=== PATIENT | female | born 1940 | race Caucasian/White ===

== ENCOUNTER 2017-06-13 17:07 | Emergency (ER) | payer OTHER ==
--- NOTE | 2017-06-13 17:44 | EDPHY ---
H & P Time Seen by Provider: 06/13/17 17:42 HPI/ROS: Chief complaint. Diarrhea, constipation HPI. 9 and the female presents to emergency a intermittent diarrhea and constipation for 1 month. Also low abdominal pain. He has had similar symptoms previously with diverticulitis. Patient is being from [place] and has been here since April. No chest pain, shortness of breath. No fever. This stool has occasional bloody mucus. No vomiting. Pain is in both lower quadrants of her abdomen. No recent antibiotics ROS Constitutional. no fever/chills, no weakness Eyes. no problems with vision ENT. no sore throat, no nasal drainage Cardiovascular. no chest pain Respiratory. no shortness of breath, no cough Abdominal. Low abdominal pain with intermittent diarrhea and constipation . no problems urinating MS. no calf pain/swelling, no neck/back pain, no joint pain Skin. no rash Lymph. no swollen glands Neuro. no headache, no dizziness, no difficulty walking or with speech Past Medical/Surgical History: Hypothyroid, restless leg syndrome, asthma, diverticulitis Social History: Single, nonsmoker, no alcohol Smoking Status: Never smoked Physical Exam: General Appearance: Alert well-developed female mild distress vital signs are stable Eyes: Pupils equal and round no pallor or injection. ENT, Mouth: Mucous membranes are moist. Respiratory: There are no retractions, lungs are clear to auscultation. Cardiovascular: Regular rate and rhythm. Gastrointestinal: Abdomen is soft with tenderness in both lower quadrants in the periumbilical area. No masses. Normal bowel sounds. Rectal exam shows empty rectum Neurological: Awake and alert, sensory and motor exams grossly normal. Skin: Warm and dry, no rashes. Musculoskeletal: Neck is supple nontender. Extremities symmetrical, full range of motion. Psychiatric: Patient is oriented X 3, there is no agitation. Constitutional: Initial Vital Signs Temperature (C) 37.4 C 06/13/17 17:18 Heart Rate 88 06/13/17 17:18 Respiratory Rate 12 06/13/17 17:18 Blood Pressure 170/109 H 06/13/17 17:18 O2 Sat (%) 95 06/13/17 17:18 O2 Delivery Mode Room Air Allergies/Adverse Reactions: No Known Allergies Allergy (Verified 06/13/17 17:16) Home Medications: Medication Instructions Recorded Fluticasone/Salmeter 250/50Mcg 1 each IH 06/13/17 [Advair 250/50 (*)] Gabapentin [Neurontin 300 MG (*)] 300 mg PO HS 06/13/17 Levothyroxine [Synthroid 50 mcg 50 mcg PO DAILY06 06/13/17 (*)] Metronidazole 500 mg PO QID #40 tablet 06/13/17 levOFLOXACIN [levAQUIN (*)] 750 mg PO DAILY #10 tab 06/13/17 Medical Decision Making - Diagnostics Imaging Results: Imaging Impressions Abdomen CT 06/13/17 18:18 Impression: 1. Sigmoid diverticulitis, with chronic constipation. 2. Old compression deformity of vertebral body of L1. I telephoned results to Dr. Mauri Samano at [address] abdomen pelvis reviewed by me and discussed with Dr. Martinez shows chronic constipation and diverticulitis. No abscess or evidence for perforation Procedures: IV normal saline ED Course/Re-evaluation: Hemoccult was negative Re-evaluation 8:00 p.m.--patient is stable. The patient, her daughter, and I discussed imaging lab results. We discussed treatment plan including criteria for return importance of follow-up and further evaluation. She expresses understanding And agreement. Patient is offered admission however she would prefer outpatient management. She and I discussed risks and benefits of this. She expresses understanding Differential Diagnosis: Considered diverticulitis, stool fecal impaction C difficile. - Data Points Laboratory Results: Laboratory Results 06/13/17 17:40 06/13/17 17:40 06/13/17 06/13/17 06/13/17 18:15 17:40 17:40 WBC 10.92 10^3/uL H 10^3/uL (3.80-9.50) RBC 3.84 10^6/uL L 10^6/uL (4.18-5.33) Hgb 11.8 g/dL L g/dL (12.6-16.3) Hct 34.5 % L % (38.0-47.0) MCV 89.8 fL fL (81.5-99.8) MCH 30.7 pg pg (27.9-34.1) MCHC 34.2 g/dL g/dL (32.4-36.7) RDW 12.7 % % (11.5-15.2) Plt Count 510 10^3/uL H 10^3/uL (150-400) MPV 10.6 fL fL (8.7-11.7) Neut % (Auto) 68.1 % % (39.3-74.2) Lymph % (Auto) 17.6 % % (15.0-45.0) [place] % (Auto) 11.5 % % (4.5-13.0) Eos % (Auto) 1.9 % % (0.6-7.6) Baso % (Auto) 0.4 % % (0.3-1.7) Nucleat RBC Rel Count 0.0 % % (0.0-0.2) Absolute Neuts (auto) 7.44 10^3/uL H 10^3/uL (1.70-6.50) Absolute Lymphs (auto) 1.92 10^3/uL 10^3/uL (1.00-3.00) Absolute Monos (auto) 1.26 10^3/uL H 10^3/uL (0.30-0.80) Absolute Eos (auto) 0.21 10^3/uL 10^3/uL (0.03-0.40) Absolute Basos (auto) 0.04 10^3/uL 10^3/uL (0.02-0.10) Absolute Nucleated RBC 0.00 10^3/uL 10^3/uL (0-0.01) Immature Gran % 0.5 % % (0.0-1.1) Immature Gran # 0.05 10^3/uL 10^3/uL (0.00-0.10) Sodium 134 mEq/L mEq/L (134-144) Potassium 3.9 mEq/L mEq/L (3.5-5.2) Chloride 99 mEq/L mEq/L (97-110) Carbon Dioxide 23 mEq/l mEq/l (22-31) Anion Gap 12 mEq/L mEq/L (8-16) BUN 14 mg/dL mg/dL (7-23) Creatinine 1.0 mg/dL mg/dL (0.6-1.0) Estimated GFR 54 Glucose 101 mg/dL H mg/dL (70-100) Calcium 9.1 mg/dL mg/dL (8.5-10.4) Stool Occult Bld Scrn NEGATIVE (NEGATIVE) Medications Given: Discontinued Medications Sodium Chloride (Ns) 1,000 mls @ 0 mls/hr IV EDNOW ONE; Wide Open PRN Reason: Protocol Stop: 06/13/17 18:18 Last Admin: 06/13/17 18:42 Dose: 1,000 mls Departure - Departure Disposition: Home, Routine, Self-Care Clinical Impression: Diverticulitis Condition: Good Instructions: Diverticulitis (ED), Diverticulitis Diet (ED) Additional Instructions: The antibiotics he will be taking are metronidazole using 1 pill every 6 hr the for 10 days. Avoid alcohol while taking this antibiotic. Next antibiotic is Levaquin which is 1 pill daily. Drink plenty of fluids and stay hydrated. Return for worsening symptoms including worsening pain, fever, vomiting. Re-evaluation in 2-3 days especially if not improving. Referrals: DR LUIS [Other] - As per Instructions Keven Stout MD [[facility] Primary Care Provider] - As per Instructions Prashanth Geronimo MD [Medical Doctor] - 2-3 days without fail Prescriptions: levOFLOXACIN [levAQUIN (*)] 750 mg PO DAILY #10 tab Metronidazole 500 mg PO QID #40 tablet
[2017-06-13] MEDS ORDERED: NS 1,000 ML IV ONE (18:17)
[2017-06-13 18:47] LABS: PLATELET COUNT 510 10^3/uL (150-400)
[2017-06-13] MEDS ORDERED: IOPAMIDOL (ISOVUE-300) 100 ML BTL ONE (18:48)
[2017-06-13 19:51] VITALS: RESP 16; O2SAT 96
[2017-06-13] MEDS ORDERED: metroNIDAZOLE 500 MG TAB PO ONE (20:17)
[2017-06-13 20:29] VITALS: BP 133/76; PULSE 81; TEMP 98.6
== END 2017-06-13 20:43 | disposition home or self-care (01) ==
DX: K57.92 Diverticulitis of intestine, part unspecified, without perforation or abscess without bleeding (principal); J45.909 Unspecified asthma, uncomplicated; E86.9 Volume depletion, unspecified
CPT/HCPCS: 74177; 96360; 99285; Q9967

== ENCOUNTER 2017-06-17 09:31 | Inpatient (IN) | payer OTHER ==
[2017-06-17] MEDS ORDERED: NS 1,000 ML IV ONE (09:49)
[2017-06-17] MEDS ORDERED: ONDANSETRON 4 MG/2 ML VIAL IVP ONE (09:49)
--- NOTE | 2017-06-17 10:34 | EDPHY ---
H & P Stated Complaint: nausea/vomit since this am--here recenlty treated for divertic on meds - Personal History Current Tetanus/Diphtheria Vaccine: Unsure Current Tetanus Diphtheria and Acellular Pertussis (TDAP): Unsure - Medical/Surgical History Hx Asthma: Yes Hx Chronic Respiratory Disease: No Hx Diabetes: No Hx Cardiac Disease: No Hx Renal Disease: No Hx Cirrhosis: No Hx Alcoholism: No Hx HIV/AIDS: No Hx Splenectomy or Spleen Trauma: No Other PMH: hypothyroid. restless leg syndrome. asthma. diverticulitis - Social History Smoking Status: Never smoked Time Seen by Provider: 06/17/17 10:16 HPI/ROS: CHIEF COMPLAINT: Vomiting since yesterday HISTORY OF PRESENT ILLNESS: 77-year-old female seen in the emergency department diagnosed with diverticulitis 4 days ago, complaining of intractable vomiting since yesterday. Complaining of diffuse nonfocal abdominal pain and cramping. No back or flank pain. No fever or chills. No diarrhea, describes her bowel movements as loose but not watery. No abdominal PRIMARY CARE PROVIDER: REVIEW OF SYSTEMS: A ten point review of systems was performed and is negative with the exception of the items mentioned in the HPI PAST MEDICAL & SURGICAL HISTORY: No pertinent medical or surgical history SOCIAL HISTORY: Nonsmoker PHYSICAL EXAM (Prior to examination, patient consented to physical exam, hands were washed and my usual and customary physical exam procedures followed) 1) GENERAL: Well-developed, well-nourished, alert and oriented. Appears anxious , retching 2) HEAD: Normocephalic, atraumatic 3) HEENT: Pupils equal, round, reactive to light bilaterally. Sclera anicteric. Nasopharynx, oropharynx, clear, no lesions. Dry mucous membranes 4) NECK: Full range of motion, no meningeal signs. 5) LUNGS: Clear auscultation bilaterally, no wheezes, no rhonchi, no retractions. 6) HEART: Regular rate and rhythm, no murmur, no heave, no gallop. 7) ABDOMEN: No guarding, diffusely tender to palpation all quadrants, 8) MUSCULOSKELETAL: Moving all extremities, no focal areas of tenderness, no obvious trauma. No peripheral edema or discoloration. 9) BACK: No obvious trauma, no visual or palpable abnormality. 10) SKIN: No rash, no petechiae. 11) Psychiatric: Patient is oriented X 3, there is no agitation. DIFFERENTIAL DIAGNOSIS: In no particular include but limited to diverticulitis , diverticular abscess, diverticular perforation, medication adverse effect (Lilliam Landeros) Constitutional: Initial Vital Signs Temperature (C) 36.7 C 06/17/17 09:41 Heart Rate 77 06/17/17 09:41 Respiratory Rate 16 06/17/17 09:41 Blood Pressure 150/96 H 06/17/17 09:41 O2 Sat (%) 96 06/17/17 09:41 O2 Delivery Mode Room Air Allergies/Adverse Reactions: No Known Allergies Allergy (Verified 06/13/17 17:16) Home Medications: Medication Instructions Recorded Fluticasone/Salmeter 250/50Mcg 1 each IH 06/13/17 [Advair 250/50 (*)] Gabapentin [Neurontin 300 MG (*)] 300 mg PO HS 06/13/17 Levothyroxine [Synthroid 50 mcg 50 mcg PO DAILY06 06/13/17 (*)] Metronidazole 500 mg PO QID #40 tablet 06/13/17 levOFLOXACIN [levAQUIN (*)] 750 mg PO DAILY #10 tab 06/13/17 Medical Decision Making ED Course/Re-evaluation: I evaluated this patient with Adalid Landeros. This patient has known diverticulitis which was uncomplicated 1st. She was being treated as an outpatient. Unfortunately, she is intractable nausea and vomiting and dehydration. We will admit her for IV antibiotics hydration further workup if needed. (Davy Montano) Patient re-evaluated with serial examinations. Patient is visiting from [place], has no local primary care provider, as feel patient therapy diverticulitis. We discussed admission which he is agreeable with. She has not taken any of her medications in approximately 15-20 out secondary to vomiting. She will be given a dose of IV ertapenem, IV hydration and plan on admission. Will hold on imaging at this time. 11:07 a.m.: Consultation with hospitalist Shannon, admit to Dr. Cueva (Lilliam Landeros) - Data Points Laboratory Results: Laboratory Results 06/17/17 09:50 06/17/17 09:50 06/17/17 06/17/17 06/17/17 09:50 09:50 09:50 WBC 13.99 10^3/uL H 10^3/uL (3.80-9.50) RBC 3.84 10^6/uL L 10^6/uL (4.18-5.33) Hgb 11.8 g/dL L g/dL (12.6-16.3) Hct 34.7 % L % (38.0-47.0) MCV 90.4 fL fL (81.5-99.8) MCH 30.7 pg pg (27.9-34.1) MCHC 34.0 g/dL g/dL (32.4-36.7) RDW 12.8 % % (11.5-15.2) Plt Count 547 10^3/uL H 10^3/uL (150-400) MPV 10.2 fL fL (8.7-11.7) Neut % (Auto) 77.8 % H % (39.3-74.2) Lymph % (Auto) 11.8 % L % (15.0-45.0) [place] % (Auto) 8.4 % % (4.5-13.0) Eos % (Auto) 0.9 % % (0.6-7.6) Baso % (Auto) 0.4 % % (0.3-1.7) Nucleat RBC Rel Count 0.0 % % (0.0-0.2) Absolute Neuts (auto) 10.88 10^3/uL H 10^3/uL (1.70-6.50) Absolute Lymphs (auto) 1.65 10^3/uL 10^3/uL (1.00-3.00) Absolute Monos (auto) 1.18 10^3/uL H 10^3/uL (0.30-0.80) Absolute Eos (auto) 0.13 10^3/uL 10^3/uL (0.03-0.40) Absolute Basos (auto) 0.05 10^3/uL 10^3/uL (0.02-0.10) Absolute Nucleated RBC 0.00 10^3/uL 10^3/uL (0-0.01) Immature Gran % 0.7 % % (0.0-1.1) Immature Gran # 0.10 10^3/uL 10^3/uL (0.00-0.10) Sodium 140 mEq/L mEq/L (135-145) Potassium 3.6 mEq/L mEq/L (3.5-5.2) Chloride 102 mEq/L mEq/L (97-110) Carbon Dioxide 24 mEq/l mEq/l (22-31) Anion Gap 14 mEq/L mEq/L (8-16) BUN 11 mg/dL mg/dL (7-23) Creatinine 0.9 mg/dL mg/dL (0.6-1.0) Estimated GFR > 60 Glucose 99 mg/dL mg/dL (70-100) Calcium 9.0 mg/dL mg/dL (8.5-10.4) Total Bilirubin 0.3 mg/dL mg/dL (0.1-1.4) Conjugated Bilirubin 0.3 mg/dL mg/dL (0.0-0.5) Unconjugated Bilirubin 0.0 mg/dL mg/dL (0.0-1.1) AST 18 IU/L IU/L (14-46) ALT 24 IU/L IU/L (9-52) Alkaline Phosphatase 79 IU/L IU/L (38-126) Total Protein 6.1 g/dL L g/dL (6.3-8.2) Albumin 3.4 g/dL L g/dL (3.5-5.0) Lipase 49 IU/L IU/L (23-300) Urine Color YELLOW Urine Appearance CLEAR Urine pH 5.0 (5.0-7.5) Ur Specific [place] 1.011 (1.002-1.030) Urine Protein NEGATIVE (NEGATIVE) Urine Ketones TRACE H (NEGATIVE) Urine Blood NEGATIVE (NEGATIVE) Urine Nitrate NEGATIVE (NEGATIVE) Urine Bilirubin NEGATIVE (NEGATIVE) Urine Urobilinogen NEGATIVE EU EU (0.2-1.0) Ur Leukocyte Esterase 1+ H (NEGATIVE) Urine RBC 1-3 /hpf /hpf (0-3) Urine WBC 3-5 /hpf H /hpf (0-3) Ur Epithelial Cells TRACE /lpf /lpf (NONE-1+) Hyaline Casts 5-15 /lpf /lpf (0-1) Urine Mucus 1+ /lpf /lpf (NONE-1+) Urine Glucose NEGATIVE (NEGATIVE) Medications Given: Discontinued Medications Sodium Chloride (Ns) 1,000 mls @ 0 mls/hr IV EDNOW ONE; Wide Open PRN Reason: Protocol Stop: 06/17/17 09:50 Last Admin: 06/17/17 09:50 Dose: 1,000 mls Ondansetron HCl (Zofran) 4 mg IVP EDNOW ONE Stop: 06/17/17 09:50 Last Admin: 06/17/17 09:55 Dose: 4 mg Promethazine HCl (Phenergan) 12.5 mg IVP ONCE ONE Stop: 06/17/17 10:44 Last Admin: 06/17/17 10:48 Dose: 12.5 mg Departure - Departure Disposition: [facility] Inpatient Acute Clinical Impression: Diverticulitis Intractable vomiting Qualifiers: Vomiting type: unspecified Nausea presence: with nausea Qualified Code(s): R11.2 - Nausea with vomiting, unspecified Condition: Fair
[2017-06-17 10:37] LABS: PLATELET COUNT 547 10^3/uL (150-400)
[2017-06-17] MEDS ORDERED: PROMETHAZINE HCL 25 MG/ML INJ IVP ONE (10:43)
[2017-06-17] MEDS ORDERED: ERTAPENEM 1 GM VIAL IVP ONE (10:51)
[2017-06-17] MEDS ORDERED: NS 100 ML BAG IV ONE (11:20)
--- NOTE | 2017-06-17 11:38 | ASMTCMCOM ---
CM Note CM Note Notes: Patient presented to ED with intractable vomiting. She was seen here four days ago, diagnosed with diverticulitis and discharged with antibiotics. She will now be admitted for IV hydration and antibiotics. Patient is from [place] and here visiting family. Case Management will follow if she has any discharge needs. Date Signed: 06/17/2017 11:38 AM Electronically Signed By:Camila Betancur RN
[2017-06-17] MEDS ORDERED: GABAPENTIN 300 MG CAP PO ONE (12:15)
[2017-06-17] MEDS ORDERED: ONDANSETRON 4 MG/2 ML VIAL IVP PRN (13:05)
[2017-06-17] MEDS ORDERED: ALBUTEROL 3 ML DEYVIAL IH PRN (13:05)
[2017-06-17] MEDS ORDERED: ZOLPIDEM TARTRATE 5 MG TAB PO PRN (13:05)
[2017-06-17] MEDS ORDERED: HYDROmorphONE/DILAUDID 1 MG/ML INJ IVP PRN (13:05)
[2017-06-17] MEDS ORDERED: LORazepam 2 MG/ML INJ IVP PRN (13:05)
[2017-06-17] MEDS ORDERED: LORazepam 0.5 MG TAB PO PRN (13:05)
[2017-06-17] MEDS ORDERED: ONDANSETRON DISINTEGRATING 4 MG TAB PO PRN (13:05)
[2017-06-17] MEDS ORDERED: HYDROCODONE/APAP 5/325 TAB PO PRN (13:05)
[2017-06-17] MEDS ORDERED: oxyCODONE IR 5 MG TAB PO PRN (13:05)
[2017-06-17] MEDS ORDERED: FLUTICASONE/SALMETER 250/50MCG DISKUS IH SCH (13:15)
--- NOTE | 2017-06-17 14:18 | GHP ---
[f rep st] HISTORY AND PHYSICAL DATE OF ADMISSION: 06/17/2017 CHIEF COMPLAINT: Left lower quadrant abdominal pain. HISTORY OF PRESENT ILLNESS: A 77-year-old female, who is a resident of [place] and visiting her daughter since April here in the [place] area. 4 days ADMINISTRATIVE RECEPTIONIST, she presented to the emergency departm ent with left-sided abdominal pain, and was felt to have acute diverticulitis. CT scan at that time showed sigmoid diverticulitis with chronic constipation. She was placed on Levaquin, but her pain thornton s persisted, and this morning she presents with nausea, vomiting, and increasing left lower quadrant abdominal pain. She denies fever and has been afebrile here in the emergency department during this visit. She has had vomiting without hematemesis, and she is still passing some gas and a little bit of stool, but there is no blood. The passing of stool does not relieve her pain. Regarding her past history, she was seen here in 2013 for left-sided abdominal pain, and a CT scan at that time showed a left ureteral calculus, which they felt would pass. It apparently did. The CT scan at that time s howed a distal left ureteral calculus likely to pass into the bladder, with evidence suggesting proxi mal colitis of unknown activity. A hiatal hernia was also noted, but no diverticulitis was specified . PAST MEDICAL HISTORY: 1. The left ureteral calculus in 2013. 2. Recent diverticulitis noted on CT scan. 3. Asthma, for which she takes a steroid inhaler, and her PCP for this is in [place]. 4. Hypothyroidism currently treated with Synthroid. ALLERGIES: None. SOCIAL HISTORY: She drinks alcohol rarely, but will have a glass a wine with her daughter, but never in abuse. Tobacco: She has never smoked, and was only exposed to second-hand smoke from her father , who smoked a pipe. She does not use any drugs of abuse. REVIEW OF SYSTEMS: A 10-point Review of Systems except as noted above is negative. FAMILY HISTORY: The mother of advanced age. Father of a cerebral hemorrhage in his 50s. There is no definitive history of early coronary disease. No history of breast cancer personally, in her extended family, or daughters, and no history of any gastrointestinal cancers. She also denies a bleeding disorder or bleeding diathesis in the family. MEDICATIONS: These are noted in the EMR, and include Neurontin; Levaquin which she was prescribed 4 days ago; metronidazole, which was also prescribed 4 days ago; Synthroid 50 mcg; and an Advair inhale r 250/50 mcg inhaler to use once daily. PHYSICAL EXAMINATION: GENERAL: This is a pleasant alert female who appears mildly uncomfortable, as she is experiencing some lower abdominal pain. VITAL SIGNS: T-max has been 37.4, blood pressure is mildly elevated at 154/94, respirations 18, nonlabored, heart rate has been within normal limits wit h a max of 88. HEENT: Shows the throat is benign without exudate. Tongue and buccal mucosa are nor mal. CHEST WALL: Normal. Normal inspiratory excursion. LUNGS: Clear to P and A without wheezing or rales. She has good air movement and air exchange. HEART: Singular S1, S2. No murmur or gallop . ABDOMEN: Slightly perhaps distended. Hypoactive bowel sounds. There is definitive tenderness in the left lower quadrant, with local areas of rebound and very slight voluntary guarding. The right lower quadrant is also slightly tender, but she reports it is improved from previously. Upper abdome n is benign. Liver cannot be palpated. Spleen not felt. SKIN: Warm and dry. Free of rashes. MALICK ROLOGIC: Normal. EXTREMITIES: Show negative Homans sign. LABORATORY: WBC elevated at 13,900, which has risen from 10,000 on 06/13. Hemoglobin is the same at 11.8. She has a left shift of her white count at 77,000. Chemistry panel is entirely normal except for an albumin of 3.4. Her lipase is normal at 49. Urinalysis shows only 1-3 red cells and 3-5 whi te cells, and her stool is occult blood negative. Urine culture is pending. IMAGING STUDIES: Reviewing her CT scan from 06/13 shows that she has definitive diverticulitis and h as not improved. There is no evidence of a phlegmon or abscess at this time. She received 1 g of In vanz here in the emergency department, and was started on IV fluids. ASSESSMENT: 1. Acute diverticulitis. She will be admitted, placed on IV fluids. The Invanz will be continued, and pain medication given as needed. At this time, a gastrointestinal consult will not be obtained, nor surgical consult. CT scan, if she does not improve, will be repeated. 2. Acute asthma by history. This is well controlled on Advair inhaler. I will continue her Advair inhaler with p.r.n. albuterol. 3. Hypothyroidism. We will continue her usual home medications. 4. DVT prophylaxis will be with Lovenox. She is at some increased risk given her acute illness and the fact that she has not been mobile in the last several days. 5. Her [id number] is her daughter. 6. The patient will be placed in observation, as she may improve within 24 hours. We do need to sup ply adequate intravenous hydration to resolve her nausea and vomiting. Her code status is full. /[id number]/MODL
[2017-06-17] MEDS: NS W/ 20 KCl/L 1,000 ML IV SCH ×2 (14:48→22:37)
[2017-06-17] MEDS: ACETAMINOPHEN 325 MG TAB PO PRN ×2 (15:00→19:23)
[2017-06-17] MEDS: FLUTICASONE/SALMETER 250/50MCG DISKUS IH SCH (15:36)
[2017-06-17] MEDS ORDERED: PIPERACILLIN/TAZO 4.5 GM/DEX 100 ML IV SCH (18:00)
[2017-06-17] MEDS: GABAPENTIN 300 MG CAP PO SCH (20:30)
[2017-06-18] MEDS: ACETAMINOPHEN 325 MG TAB PO PRN ×5 (00:53→20:45)
[2017-06-18] MEDS: LEVOTHYROXINE 50 MCG TAB PO SCH (05:17)
[2017-06-18 05:33] LABS: PLATELET COUNT 462 10^3/uL (150-400)
[2017-06-18] MEDS: NS W/ 20 KCl/L 1,000 ML IV SCH (05:37)
[2017-06-18 05:56] LABS: INR 1.43 (0.83-1.16); PROTIME(PATIENT) 17.6 SEC (12.0-15.0)
[2017-06-18] MEDS: FLUTICASONE/SALMETER 250/50MCG DISKUS IH SCH (08:06)
[2017-06-18] MEDS: ERTAPENEM 1 GM VIAL IVP SCH (08:30)
[2017-06-18] MEDS: ENOXAPARIN 40 MG/0.4 ML SYR SC SCH (08:33)
[2017-06-18] MEDS ORDERED: FLU VACC QS 2017-18 (3YR+)/PF 0.5 ML SYR (FLUARIX QUAD) IM ONE (08:41)
--- NOTE | 2017-06-18 10:11 | HOSPPROG ---
Hospitalist Progress Note Assessment/Plan: 77-year-old female admitted with left lower quadrant pain and noted to have acute diverticulitis with an elevated white count. She is afebrile and today her pain is somewhat improved. Laboratory notes a developing anemia without signs of blood loss and severe protein caloric malnutrition with an albumin of 2.5. The patient desires to eat. -acute diverticulitis -weakness and nausea Subjective: reports persistent pain in LLQ of abdomen. some nausea Objective: Vital Signs Temp Pulse Resp BP Pulse Ox 36.8 C 91 12 131/109 H 95 06/18/17 08:03 06/18/17 08:08 06/18/17 08:08 06/18/17 08:03 06/18/17 08:08 Laboratory Results 06/18/17 05:23 06/18/17 05:23 06/17/17 06/18/17 06/19/17 05:59 05:59 05:59 Intake Total 3500 Balance 3500 PT 17.6 SEC (12.0-15.0) H 06/18/17 05:23 INR 1.43 (0.83-1.16) H 06/18/17 05:23 Laboratory Tests 06/17/17 06/17/17 06/18/17 09:50 09:50 05:23 WBC 13.99 H 13.24 H Hgb 11.8 L 10.4 L Albumin 3.4 L 06/18/17 05:23 WBC Hgb Albumin 2.5 L Severe protein caloric malnutrition with an albumin 2.5; white count persists and being elevated though the patient is afebrile anemia has developed without signs of blood loss. Laboratory Tests 06/13/17 06/18/17 06/18/17 17:40 05:23 05:23 WBC 13.24 H Hgb 11.8 L 10.4 L Plt Count 462 H D Absolute Neuts (auto) 8.97 H Albumin 2.5 L - Time Spent With Patient Time Spent with Patient: greater than 35 minutes Time Spent with Patient: Greater than 35 minutes spent on this patients care, greater than 50% of time spent counseling, educating, and coordinating care regarding the above mentioned plan. - Pending Discharge Pending Discharge Within 24 Hours: No Pending Discharge Within 48 Hours: Yes Pending Discharge Date: 06/20/17 Pending Discharge Time: 11:00 - Physical Exam Constitutional: no apparent distress Eyes: PERRL Ears, Nose, Mouth, Throat: moist mucous membranes, hearing normal Cardiovascular: regular rate and rhythym, no murmur, rub, or gallop Respiratory: no respiratory distress, no rales or rhonchi Gastrointestinal: normoactive bowel sounds, tenderness, guarding, rebound, distension Genitourinary: no bladder fullness Skin: warm Musculoskeletal: full muscle strength Neurologic: AAOx3, CN II-XII Intact Psychiatric: interacting appropriately ICD10 Worksheet Patient Problems: Problems Problem Status Onset Diverticulitis Acute Intractable vomiting Acute
--- NOTE | 2017-06-18 11:15 | PDMN ---
Medical Necessity Medical necessity: C/M review: Patient meets INPT criteria under [facility] M-150 Diverticulitis, acute: Acute and persistent diverticulitis, recent diverticulitis on 06/13/2017 CT, WBC 13.99, 13.24, eight stools -,loose to liquid with mucus in prior 24 hrs., anemia without signs of blood loss, Hgb 11.8, 10.4 , Hct 34.7, 30.6, severe protein calorie malnutrition, requiring IV fluids 06/17, ongoing IV Invanz QD, severe protein caloric malnutrition, total protein 6.1, 5.2, Albumin 3.4, 2.5, comorbid asthma, hypothyroidism, patient visiting [facility] from [place], [place]. anticipated > 2 MN LOS for ongoing med nec for eval and TX of above. Patient is Medicare advantage which follows CMS guidelines.
--- NOTE | 2017-06-18 11:59 | ASMTCMCOM ---
CM Note CM Note Notes: Spoke w/RN, anticipate pt will dc w/support of family when medically stable. CM available for any changes. DC Plan: Home independent Date Signed: 06/18/2017 11:58 AM Electronically Signed By:Libby Bazzi RN
[2017-06-18] MEDS: GABAPENTIN 300 MG CAP PO SCH (20:45)
[2017-06-19 05:21] LABS: PLATELET COUNT 449 10^3/uL (150-400)
[2017-06-19] MEDS: LEVOTHYROXINE 50 MCG TAB PO SCH (05:29)
[2017-06-19] MEDS: FLUTICASONE/SALMETER 250/50MCG DISKUS IH SCH (08:15)
[2017-06-19] MEDS: ACETAMINOPHEN 325 MG TAB PO PRN ×2 (08:36→18:23)
[2017-06-19] MEDS: ERTAPENEM 1 GM VIAL IVP SCH ×2 (08:36→08:37)
[2017-06-19] MEDS: ENOXAPARIN 40 MG/0.4 ML SYR SC SCH ×2 (08:38→08:46)
--- NOTE | 2017-06-19 14:01 | GCON ---
[f rep st] CONSULTATION DATE OF CONSULTATION: 06/19/2017 REQUESTING PHYSICIAN: Dr. Robert Cueva. REASON FOR CONSULTATION: Diverticulitis. HISTORY OF PRESENT ILLNESS: Patient is a 77-year-old female who presented in the emergency department with left lower quadrant pain and was diagnosed with acute diverticulitis. She has had a history in the past of diverticulitis and was sent home on antibiotics. She was unable to tolerate antibiotics, her pain getting worse, as well as significant nausea and vomiting, and was admitted into the ED 2 days ago with a diagnosis of acute diverticulitis. She was put on Levaquin IV antibiotics due to the persistent pain. The nausea and vomiting have since stopped. All that remains is left lower quadrant pain. She describes this as a dull ache with occasional sharp stabbing bouts of pain, 7/ 10. The dull ache is a 3/10. Most of her pain is in the left lower quadrant though she says it radiates occasionally into the central and right lower quadrant. The patient is continuing to have bloody mucousy stools with normal urine. She occasionally gets sharp pains while urinating in the left lower quadrant. She reports being sore and tender. She has been going very easy on her diet, has not been eating much and this morning is trying to eat some food. Her last colonoscopy was 4 years ago and she reports that there were no abnormal findings. Since being admitted and put on IV antibiotics, the patient reports feeling much better with a decrease in her nausea and vomiting to none today and significant decrease in her pain though she is still quite tender. On 06/14/2017, she had a CT scan that showed sigmoid diverticulitis with chronic constipation. PAST MEDICAL HISTORY: 1. Left ureteral calculus in 2013. 2. Recent diverticulitis note noted on CT scan 06/14/2017. 3. Asthma, for which she takes steroid inhaler. 4. Hypothyroidism, currently treated with Synthroid. ALLERGIES: No known drug allergies. SOCIAL HISTORY: The patient is a resident of [place] and is visiting her daughter and has been in [place] since April. She rarely drinks alcohol but occasionally has a glass of wine. She has never smoked but has a history of secondhand smoke from her father who smoked as she grew up. Denies any drug use or abuse. FAMILY HISTORY: Mother of advanced age. Father of a cerebral hemorrhage in his 50s. No known history of heart disease. No history of breast cancer or any GI cancers. Denies any family history of bleeding disorders. MEDICATIONS: Acetaminophen 650 mg p.o. q.4 hours as needed, Nikolai 5/325, 1 to 2 tablets p.o. every 4 hours as needed, albuterol inhaler, Lovenox 40 mg subcutaneous daily, Invanz 1 g IV p.o. daily, gabapentin 300 mg p.o., Dilaudid 0.2 to 0.4 mg IVP every 4 hours as needed for pain, Synthroid 50 mcg p.o. daily , Lorazepam 0.5 to 1 mg IVP every 8 hours as needed, Zofran 4 mg IVP every 4 hours as needed, oxycodone IR 5 to 10 mg p.o. every 3 hours as needed, Advair inhaler, Ambien 5 to 10 mg p.o. at bedtime as needed for sleep. REVIEW OF SYSTEMS: 10-point review of systems negative aside from HPI. PHYSICAL EXAMINATION: VITAL SIGNS: Heart rate 85, respiratory rate 16, oxygen saturation on room air 95%, afebrile. GENERAL: This is a pleasant female who is lying in bed, well-nourished, well-groomed in no acute distress. She is awake when we walk in the room. HEENT: Normocephalic. No gross hearing deficits. Mucous membranes moist. Pupils equal, round, and reactive to light. LUNGS: Clear to auscultation bilaterally. No increased work of breathing. No wheezing or rales. CARDIAC: Regular rate and rhythm. No peripheral edema. No murmurs or gallops. ABDOMEN: Normoactive bowel sounds. Tenderness to palpation especially in the left lower quadrant. Some mild discomfort with palpation in the right lower quadrant and central lower abdomen. No rebound tenderness. No guarding. Abdomen is slightly distended. Liver cannot be palpated. Spleen not felt. SKIN: Warm and dry. MUSCULOSKELETAL: Normal nails. PSYCHIATRIC: Mood and affect normal. NEUROLOGIC: Grossly intact. LABORATORY DATA: Results reviewed. White count is 10.67 which is trending down from 13.24 and 13.99 in the past 2 days. Hemoglobin is low at 10.4 with hematocrit also low at 30.2. All other labs appear grossly normal. CT of the abdomen and pelvis with IV contrast on 06/13/2017, showed sigmoid diverticulitis with chronic constipation and an old compression deformity of the vertebral body of L1. ASSESSMENT/PLAN: The patient has what appears to be uncomplicated diverticulitis. As of today, she is increasing her diet. She should be monitored to see how she tolerates her diet. I do not think she needs surgical intervention at this time. She should follow up with her primary care physician at home in [place] and discuss the possibility of a followup colonoscopy. We discussed if she has repeated episodes of diverticulitis then she could consider sigmoid colectomy. /[id number]/MODL MTDD
--- NOTE | 2017-06-19 16:01 | HOSPPROG ---
Hospitalist Progress Note Assessment/Plan: 77-year-old female admitted with left lower quadrant pain and noted to have acute diverticulitis with an elevated white count. She is afebrile and today her pain is somewhat improved. Today it is noted that her blood pressures been persistently elevated. Today patient also is eating slightly more her pain is slightly less. -acute diverticulitis: Her pain is declining and localizing to a smaller area in the left lower quadrant or white count continues to be elevated she is afebrile. In this regard she is improving. Surgery is consulted and findings are appreciated. She is not a surgical candidate. In summary on June 13 she began Levaquin for left lower quadrant pain was admitted on June 18 and has been on Invanz since and is improving on IV therapy. -weakness and nausea: Now improving on IV Invanz for her acute diverticulitis: Patient clearly had GI nausea with Flagyl as an outpatient. This is persisted without signs of GI bleeding. She has no history of reflux. Plan to place her on Protonix twice daily while in the hospital in planning for discharge on oral antibiotics. -elevated blood pressure: Patient has no history of this although it has been elevated throughout this hospitalization. This may be secondary to pain and an acute illness. Plan to start metoprolol 12.5 mg twice daily and assess. Plan: Continue IV Invanz as she is improving. -add metoprolol for blood pressure Disposition: Patient is from [place] and when definitively improving could be discharged on oral therapy to complete returned to [place]. Her daughter lives here in [place] and perhaps she could stay with her daughter until she has definitively improved. Her blood pressure should be rechecked. Possible discharge in 1-2 days Plan was discussed with the patient and her daughter in all questions were answered. Time: 45 min Subjective: Reports she continues to have pain but is eating a little more. She moves her bowels with mucousy and slightly bloody stools. No fever chills sweats chest pain or shortness of breath Objective: Vital Signs Temp Pulse Resp BP Pulse Ox 37.2 C 85 16 162/91 H 95 06/19/17 07:40 06/19/17 08:19 06/19/17 08:19 06/19/17 07:40 06/19/17 08:19 Laboratory Results 06/19/17 04:52 06/19/17 04:52 06/18/17 06/19/17 06/20/17 05:59 05:59 05:59 Intake Total 500 Balance 500 PT 17.6 SEC (12.0-15.0) H 06/18/17 05:23 INR 1.43 (0.83-1.16) H 06/18/17 05:23 - Time Spent With Patient Time Spent with Patient: greater than 35 minutes Time Spent with Patient: Greater than 35 minutes spent on this patients care, greater than 50% of time spent counseling, educating, and coordinating care regarding the above mentioned plan. - Pending Discharge Pending Discharge Within 24 Hours: Yes Pending Discharge Date: 06/20/17 Pending Discharge Time: 11:00 - Physical Exam Constitutional: no apparent distress Eyes: PERRL, anicteric sclera Ears, Nose, Mouth, Throat: moist mucous membranes, hearing normal Cardiovascular: regular rate and rhythym, no murmur, rub, or gallop Respiratory: no respiratory distress, no rales or rhonchi, clear to auscultation Gastrointestinal: normoactive bowel sounds, tenderness (Tenderness and left lower quadrant with slight guarding and very slight rebound in this area. The exam is improving day today) Genitourinary: no bladder fullness Skin: warm Musculoskeletal: full muscle strength Neurologic: AAOx3, CN II-XII Intact Psychiatric: interacting appropriately ICD10 Worksheet Patient Problems: Problems Problem Status Onset Diverticulitis Acute Intractable vomiting Acute
[2017-06-19] MEDS: PANTOPRAZOLE SODIUM 40 MG TAB PO SCH (20:50)
[2017-06-19] MEDS: METOPROLOL TARTRATE 25 MG TAB PO SCH (20:50)
[2017-06-19] MEDS: GABAPENTIN 300 MG CAP PO SCH (20:57)
[2017-06-20 05:19] LABS: PLATELET COUNT 439 10^3/uL (150-400)
[2017-06-20] MEDS: LEVOTHYROXINE 50 MCG TAB PO SCH (06:19)
[2017-06-20 08:54] VITALS: BP 137/91; PULSE 84; RESP 16; TEMP 98.1; O2SAT 96
[2017-06-20] MEDS: FLUTICASONE/SALMETER 250/50MCG DISKUS IH SCH (09:21)
[2017-06-20] MEDS: ERTAPENEM 1 GM VIAL IVP SCH (09:23)
[2017-06-20] MEDS: PANTOPRAZOLE SODIUM 40 MG TAB PO SCH (09:24)
[2017-06-20] MEDS: ENOXAPARIN 40 MG/0.4 ML SYR SC SCH (09:27)
[2017-06-20] MEDS: METOPROLOL TARTRATE 25 MG TAB PO SCH (09:37)
[2017-06-20] MEDS: ACETAMINOPHEN 325 MG TAB PO PRN (10:56)
--- NOTE | 2017-06-20 19:13 | GDS ---
[f rep st] DISCHARGE SUMMARY DIAGNOSIS: Acute sigmoid diverticulitis. HISTORY: Felicity is a 77-year-old female visiting from [place], who developed left lower quadrant p ain, had a CT scan showing acute diverticulitis. She initially attempted outpatient treatment with L evaquin and Flagyl. However, the antibiotic caused profuse nausea and vomiting, and she re-presented to the emergency room and was admitted. She was treated here with IV ertapenem and is improving. I suspect her antibiotic intolerance was just typical nausea and vomiting due to the Flagyl. We will change her antibiotic regimen to oral Augmentin to complete a 14-day course of therapy. As long as s he is improving over the next couple of days, she was cleared to fly home and follow up with primary care. DISCHARGE MEDICATIONS: Please see computerized record for full detailed list. New medication: Augm entin 875 mg p.o. twice daily for 8 more days. ADDITIONAL DISCHARGE INSTRUCTIONS: Okay to fly back to [place] in a few days provided she has on going improvement of her condition. Greater than 30 minutes' time was spent arranging this discharge. Patient seen and examined by me on the day of discharge. /[id number]/MODL
--- NOTE | 2017-06-23 09:45 | PQFORM ---
PHYSICIAN QUERY FORM Needs Your Response This query form is being sent to you to assure this patient record is coded properly. Please respond to the question below: MARKETING RESEARCHER QUESTION: Dr Calvin Severe Protein Calorie Malnutrition is mentioned in the Progress Notes with Total Proteins of 6.1 and 5.2 as well as Albumins of 2.5 and 3.4. There is no mention of Severe Protein Calorie Malnutrition mentioned in the Discharge Summary. Do you this patient has Severe Protein Calorie Malnutrition ? _x__ Yes ___ No ___ Other (Please Specify ) ___ Unable to Determine Thank You Liss RIVERS Audiovisual Technician INSTRUCTIONS FOR RESPONSE: Answer question by clicking on the "Edit Document" button. Move cursor to area below the stars. When complete, hit "Save." Click on the "Sign" button, then click "Sign" again. Type in your PIN and hit "Enter." MTDD
== END 2017-06-20 13:26 | disposition home or self-care (01) | DRG 391 ==
LOC: F3E 14:04 → OBSVTOIN 06-18 10:48
PROVIDERS: ADMIT Internal Medicine Pulmonary Disease; ATTEND Internal Medicine Pulmonary Disease
DX: K57.32 Diverticulitis of large intestine without perforation or abscess without bleeding (principal); E03.9 Hypothyroidism, unspecified; E43 Unspecified severe protein-calorie malnutrition; J45.909 Unspecified asthma, uncomplicated; R03.0 Elevated blood-pressure reading, without diagnosis of hypertension; D64.9 Anemia, unspecified; Z87.442 Personal history of urinary calculi; Z23 Encounter for immunization
CPT/HCPCS: 96374; G0008; G0378; J1335; J1650; J2405; J2550

== ENCOUNTER 2017-06-25 12:52 | Emergency (ER) | payer OTHER ==
[2017-06-25] MEDS ORDERED: ONDANSETRON 4 MG/2 ML VIAL IVP ONE ×2 (13:26→16:06)
[2017-06-25] MEDS ORDERED: NS 1,000 ML IV ONE (13:26)
[2017-06-25] MEDS ORDERED: ERTAPENEM 1 GM VIAL IVP ONE (13:27)
--- NOTE | 2017-06-25 13:30 | EDPHY ---
H & P Stated Complaint: D/C Mon from [facility]; ? exacerbation of diverticulitis vs GI upset from antibx Time Seen by Provider: 06/25/17 13:10 HPI/ROS: CHIEF COMPLAINT: Left lower quadrant pain, nausea HISTORY OF PRESENT ILLNESS: Patient is a 77-year-old female visiting from [place] complaining of left lower quadrant pain as well as nausea. She was seen here on the and had a CT scan diagnosed with diverticulitis. She was started on Levaquin and Flagyl. She returned on the with intractable nausea and vomiting continued pain and was admitted for 3 days. During the hospital stay she was on ertapenem and felt much better. She was discharged on the this time on Augmentin for 8 more days to complete a 14 day course. She states that whenever she takes the Augmentin she feels immediately nauseous but has not yet vomited. She feels better when she takes it with food especially in the evenings. She he was confused however because the prescription she has says to take for 16 days twice a day daily. Also she is having persistent left lower quadrant pain although she states that is much better than it was a week ago. She is concerned that she is not improving and will not be able to fly back to [place]. No fevers. She continues to have mucousy diarrhea, nonbloody. REVIEW OF SYSTEMS: Constitutional: denies: chills, fever, recent illness, recent injury EENTM: denies: blurred vision, double vision, nose congestion Respiratory: denies: cough, shortness of breath Cardiac: denies: chest pain, irregular heart rate, lightheadedness, palpitations Gastrointestinal/Abdominal: See HPI Genitourinary: denies: dysuria, frequency, hematuria, pain Musculoskeletal: denies: joint pain, muscle pain Skin: denies: lesions, rash, jaundice, bruising Neurological: denies: headache, numbness, paresthesia, tingling, dizziness, weakness Hematologic/Lymphatic: denies: blood clots, easy bleeding, easy bruising Immunologic/allergic: denies: HIV/AIDS, transplant EXAM: GENERAL: Well-appearing, well-nourished and in no acute distress. HEAD: Atraumatic, normocephalic. EYES: Pupils equal round and reactive to light, extraocular movements intact, sclera anicteric, conjunctiva are normal. ENT: TMs normal, nares patent, oropharynx clear without exudates. Moist mucous membranes. NECK: Normal range of motion, supple without lymphadenopathy or JVD. LUNGS: Breath sounds clear to auscultation bilaterally and equal. No wheezes rales or rhonchi. HEART: Regular rate and rhythm without murmurs, rubs or gallops. ABDOMEN: Mild left lower quadrant tenderness. No guarding or rebound. BACK: No CVA tenderness, no spinal tenderness, step-offs or deformities EXTREMITIES: Normal range of motion, no pitting or edema. No clubbing or cyanosis. NEUROLOGICAL: Cranial nerves II through XII grossly intact. Normal speech, normal gait. 5/5 strength, normal movement in all extremities, normal sensation PSYCH: Normal mood, normal affect. SKIN: Warm, dry, normal turgor, no visible rashes or lesions. Source: Patient Exam Limitations: No limitations - Personal History Current Tetanus Diphtheria and Acellular Pertussis (TDAP): Yes - Medical/Surgical History Hx Asthma: Yes Hx Chronic Respiratory Disease: No Hx Diabetes: No Hx Cardiac Disease: No Hx Renal Disease: No Hx Cirrhosis: No Hx Alcoholism: No Hx HIV/AIDS: No Hx Splenectomy or Spleen Trauma: No Other PMH: hypothyroid. restless leg syndrome. asthma. diverticulitis - Family History Significant Family History: No pertinent family hx - Social History Smoking Status: Never smoked Alcohol Use: Sober Drug Use: None Constitutional: Initial Vital Signs Temperature (C) 36.5 C 06/25/17 13:02 Heart Rate 89 06/25/17 13:02 Respiratory Rate 20 06/25/17 13:02 Blood Pressure 136/82 H 06/25/17 13:02 O2 Sat (%) 97 06/25/17 13:02 O2 Delivery Mode Room Air Allergies/Adverse Reactions: No Known Allergies Allergy (Verified 06/25/17 13:02) Home Medications: Medication Instructions Recorded Fluticasone/Salmeter 250/50Mcg 1 each IH DAILY 06/13/17 [Advair 250/50 (*)] Gabapentin [Neurontin 300 MG (*)] 300 mg PO HS 06/13/17 Levothyroxine [Synthroid 50 mcg 50 mcg PO DAILY06 06/13/17 (*)] Amoxicillin/Clavulanate Pot 875 mg PO BID 16 Days tab 06/20/17 [Augmentin 875 MG TAB (*)] Ondansetron Odt [Zofran Odt 4 mg 4 mg PO Q4 PRN #20 tab 06/25/17 (RX)] Medical Decision Making - Diagnostics Imaging Results: Imaging Impressions Abdomen CT 06/25/17 13:26 Impression: 1. Resolving sigmoid diverticulitis with no complication identified. 2. See above report for additional findings. Imaging: Discussed imaging studies w/ scallop raker Radiologist ED Course/Re-evaluation: The patient and her daughter are here both to receive better control of her nausea and vomiting. They have been taking an [id number] anti emetic they are not sure the name. Also they would like to be worked up again to ensure that her diverticulitis is improving whether that worsening. 4:00 p.m. I discussed the case with Dr. Martinez. She feels that the patient should finish 14 day course of Augmentin which would be another 9 days. I will prescribe Zofran for the patient to take along with her medication. Differential Diagnosis: Partial list of the Differential diagnosis considered include but were not limited to; diverticulitis, nausea, medication reaction and although unlikely based on the history and physical exam, I also considered perforation, obstruction, kidney stone. I discussed these differential diagnoses and the plan with the patient as well as the usual and expected course. The patient understands that the diagnosis is provisional and that in medicine we are not always correct and that further workup is often warranted. Usual and customary warnings were given. All of the patient's questions were answered. The patient was instructed to return to the emergency department should the symptoms at all worsen or return, otherwise to followup with the physician as we discussed. - Data Points Laboratory Results: Laboratory Results 06/25/17 13:30 06/25/17 13:30 06/25/17 06/25/17 06/25/17 15:05 13:30 13:30 WBC 15.23 10^3/uL H 10^3/uL (3.80-9.50) RBC 3.27 10^6/uL L 10^6/uL (4.18-5.33) Hgb 10.2 g/dL L g/dL (12.6-16.3) Hct 28.7 % L % (38.0-47.0) MCV 87.8 fL fL (81.5-99.8) MCH 31.2 pg pg (27.9-34.1) MCHC 35.5 g/dL g/dL (32.4-36.7) RDW 13.6 % % (11.5-15.2) Plt Count 516 10^3/uL H 10^3/uL (150-400) MPV 9.7 fL fL (8.7-11.7) Neut % (Auto) 72.3 % % (39.3-74.2) Lymph % (Auto) 15.2 % % (15.0-45.0) [place] % (Auto) 8.9 % % (4.5-13.0) Eos % (Auto) 2.6 % % (0.6-7.6) Baso % (Auto) 0.4 % % (0.3-1.7) Nucleat RBC Rel Count 0.0 % % (0.0-0.2) Absolute Neuts (auto) 11.02 10^3/uL H 10^3/uL (1.70-6.50) Absolute Lymphs (auto) 2.32 10^3/uL 10^3/uL (1.00-3.00) Absolute Monos (auto) 1.35 10^3/uL H 10^3/uL (0.30-0.80) Absolute Eos (auto) 0.39 10^3/uL 10^3/uL (0.03-0.40) Absolute Basos (auto) 0.06 10^3/uL 10^3/uL (0.02-0.10) Absolute Nucleated RBC 0.00 10^3/uL 10^3/uL (0-0.01) Immature Gran % 0.6 % % (0.0-1.1) Immature Gran # 0.09 10^3/uL 10^3/uL (0.00-0.10) Sodium 140 mEq/L mEq/L (135-145) Potassium 3.7 mEq/L mEq/L (3.5-5.2) Chloride 104 mEq/L mEq/L (97-110) Carbon Dioxide 24 mEq/l mEq/l (22-31) Anion Gap 12 mEq/L mEq/L (8-16) BUN 18 mg/dL mg/dL (7-23) Creatinine 0.8 mg/dL mg/dL (0.6-1.0) Estimated GFR > 60 Glucose 95 mg/dL mg/dL (70-100) Calcium 8.4 mg/dL L mg/dL (8.5-10.4) Total Bilirubin 0.5 mg/dL mg/dL (0.1-1.4) Conjugated Bilirubin 0.3 mg/dL mg/dL (0.0-0.5) Unconjugated Bilirubin 0.2 mg/dL mg/dL (0.0-1.1) AST 20 IU/L IU/L (14-46) ALT 35 IU/L IU/L (9-52) Alkaline Phosphatase 96 IU/L IU/L (38-126) Total Protein 5.9 g/dL L g/dL (6.3-8.2) Albumin 2.9 g/dL L g/dL (3.5-5.0) Lipase 56 IU/L IU/L (23-300) Urine Color YELLOW Urine Appearance HAZY Urine pH 7.0 (5.0-7.5) Ur Specific [place] 1.025 (1.002-1.030) Urine Protein NEGATIVE (NEGATIVE) Urine Ketones TRACE H (NEGATIVE) Urine Blood 2+ H (NEGATIVE) Urine Nitrate NEGATIVE (NEGATIVE) Urine Bilirubin NEGATIVE (NEGATIVE) Urine Urobilinogen NEGATIVE EU EU (0.2-1.0) Ur Leukocyte Esterase 3+ H (NEGATIVE) Urine RBC 1-3 /hpf /hpf (0-3) Urine WBC 1-3 /hpf /hpf (0-3) Ur Epithelial Cells 2+ /lpf H /lpf (NONE-1+) Urine Bacteria TRACE /hpf H /hpf (NONE SEEN) Urine Mucus TRACE /lpf /lpf (NONE-1+) Urine Glucose NEGATIVE (NEGATIVE) Medications Given: Discontinued Medications Ertapenem (Invanz) 1 gm IVP EDNOW ONE PRN Reason: Protocol Stop: 06/25/17 13:28 Last Admin: 06/25/17 14:17 Dose: 1 gm Sodium Chloride (Ns) 1,000 mls @ 0 mls/hr IV EDNOW ONE; Wide Open PRN Reason: Protocol Stop: 06/25/17 13:27 Last Admin: 06/25/17 13:43 Dose: 1,000 mls Ondansetron HCl (Zofran) 4 mg IVP EDNOW ONE Stop: 06/25/17 13:27 Last Admin: 06/25/17 13:43 Dose: 4 mg Ondansetron HCl (Zofran) 4 mg IVP EDNOW ONE Stop: 06/25/17 16:07 Last Admin: 06/25/17 16:18 Dose: 4 mg Departure - Departure Disposition: Home, Routine, Self-Care Clinical Impression: Diverticulitis Condition: Fair Instructions: Diverticulitis (ED) Additional Instructions: Continue taking the Augmentin until the . Referrals: JANUARY PAIZ [Other] - As per Instructions Prescriptions: Ondansetron Odt [Zofran Odt 4 mg (RX)] 4 mg PO Q4 PRN #20 tab PRN Reason: Nausea & Vomiting
[2017-06-25 13:42] LABS: PLATELET COUNT 516 10^3/uL (150-400)
[2017-06-25] MEDS ORDERED: IOPAMIDOL (ISOVUE-300) 100 ML BTL ONE (14:08)
[2017-06-25 15:13] VITALS: O2SAT 96
[2017-06-25 16:29] VITALS: BP 155/85; PULSE 84; RESP 18; TEMP 98.1
== END 2017-06-25 16:25 | disposition home or self-care (01) ==
DX: K57.92 Diverticulitis of intestine, part unspecified, without perforation or abscess without bleeding (principal); J45.909 Unspecified asthma, uncomplicated; E86.9 Volume depletion, unspecified
CPT/HCPCS: 74177; 96361; 96374; 96375; 96376; 99285; J1335; J2405; Q9967